=== PATIENT | female | born 1995 | race Caucasian/White ===

== ENCOUNTER 2021-12-15 19:39 | Emergency (ER) | payer OTHER ==
--- NOTE | 2021-12-15 20:07 | NUR ---
called name, no answer
--- NOTE | 2021-12-15 20:17 | NUR ---
called name, no answer
--- NOTE | 2021-12-15 20:33 | NUR ---
lwbs at this time
--- NOTE | 2021-12-15 22:04 | NUR ---
pt returned to lobby
--- NOTE | 2021-12-15 22:27 | NUR ---
called pt in lobby and outside, no answer
== END 2021-12-15 22:27 | disposition left against medical advice (07) ==
LOC: MED 19:39
DX: M79.603 Pain in arm, unspecified (principal); Z53.21 Procedure and treatment not carried out due to patient leaving prior to being seen by health care provider